=== PATIENT | female | born 1940 | race Caucasian/White ===

== ENCOUNTER 2022-05-03 18:58 | Emergency (ER) | payer OTHER ==
[~2022-05-03] VITALS: Ht 149.9 cm; Wt 77.1 kg
[2022-05-03 19:20] VITALS: BP_SYST 167
--- NOTE | 2022-05-03 19:30 | NUR ---
PT HERE ACCOMPANIED BY HER C/O FLU LIKE SYMPTOMS. PT STATED IT STARTED YESTERDAY PER PT SHE HAS BODY CAHES, COUGH AND CHILLS. AND TODAY PER PT SHE TOOK HOMETEST KIT COVID AND RESULTED POSITIVE. PT DENIES N/V/D, DENIES OTHER SYMPTOMS. PMH:HTN PT AAOX4, NO SOB NOTED AND NAD. PT ASSISTED TO RM 7, REPORT GIVEN TO ESTEFANY ALAN
--- NOTE | 2022-05-03 19:45 | NUR ---
AARTI Corey at bedside examining patient.
[2022-05-03] MEDS ORDERED: NIRM1TAB PO (21:11)
--- NOTE | 2022-05-03 21:20 | NUR ---
Covid nasal swab collected and sent to lab.
[2022-05-03 21:47] VITALS: BP_SYST 144
--- NOTE | 2022-05-03 21:49 | NUR ---
Patient given written and verbal discharge instructions and verbalizes understanding. ER MD Banks discussed with patient the results and treatment provided. Patient in stable condition. ID arm band removed. Rx of Paxlovid sent to preferred pharmacy. Patient educated on pain management and to follow up with PMD. Opportunity for questions provided and answered. Medication side effect fact sheet provided.
== END 2022-05-03 21:44 | disposition home or self-care (01) ==
LOC: SED 18:58
DX: U07.1 COVID-19 (principal); R05.9 Cough, unspecified; R09.81 Nasal congestion; I10 Essential (primary) hypertension; Z79.899 Other long term (current) drug therapy
CPT/HCPCS: 36415; 71045; 99284